=== PATIENT | female | born 1970 | race Caucasian/White ===

== ENCOUNTER 2017-01-04 08:34 | Emergency (ER) | payer BC ==
[~2017-01-04] VITALS: Ht 162.6 cm; Wt 63.5 kg
[2017-01-04 08:35] VITALS: BP_SYST 150
--- NOTE | 2017-01-04 08:35 | NUR ---
Patient to ER bed 08 to gown for evaluation. Side rails up. Report given to NYA Matos.
--- NOTE | 2017-01-04 08:46 | NUR ---
Recieved Pt in bed 8. Pt stated she was cooking corn last night 01/03/2017 and spilled boiling hot water on left lower leg and foot. 2nd degee lombardi noted on left lower leg, 6% lower lombardi noted lower leg. Vesicle and reddness noted. Pt stated she applied bacitracim on wound and wrapped gauzed and kerlix dressing. Addendum: 01/04/17 at 0850 by PARISA Pt c/o 09/18 pain.
--- NOTE | 2017-01-04 09:05 | NUR ---
Dr. Garay at the bedside discussing plan of care. Currently awaiting new orders.
[2017-01-04] MEDS ORDERED: SILVER SULFADIAZINE 1%, 25 GM TOPICAL CREAM (SSD) TP ONE (09:15)
[2017-01-04 09:30] VITALS: BP_SYST 124
--- NOTE | 2017-01-04 09:40 | NUR ---
Patient given written and verbal discharge instructions and verbalizes understanding. ER MD discussed with patient the results and treatment provided. Given copies of tests performed in ER. Patient in stable condition. ID arm band removed. Rx of silvadene given. Patient educated on pain management and to follow up with PMD. Pain Scale 0/10. Opportunity for questions provided and answered.
== END 2017-01-04 09:40 | disposition home or self-care (01) ==
LOC: SED 08:34
DX: T24.202A Burn of second degree of unspecified site of left lower limb, except ankle and foot, initial encounter (principal); T24.232A Burn of second degree of left lower leg, initial encounter; R03.0 Elevated blood-pressure reading, without diagnosis of hypertension; X12.XXXA Contact with other hot fluids, initial encounter; Y93.G3 Activity, cooking and baking; Y99.8 Other external cause status; Y92.89 Other specified places as the place of occurrence of the external cause
CPT/HCPCS: 99283

== ENCOUNTER 2018-06-09 16:31 | Emergency (ER) | payer BC ==
[~2018-06-09] VITALS: Ht 162.6 cm; Wt 61.2 kg
[2018-06-09 16:33] VITALS: BP_SYST 138
[2018-06-09] MEDS ORDERED: KETOROLAC TROMETHAMINE 30 MG VIAL IVP ONE (17:00)
[2018-06-09] MEDS ORDERED: NACL 0.9% 1,000 ML IV ONE (17:00)
[2018-06-09 17:21] LABS: BASOPHILS % (AUTO) 0.3 % (0.0-2.0); EOSINOPHILS # (AUTO) 0.1 K/uL (0.0-0.4); EOSINOPHILS % (AUTO) 0.6 % (0.0-4.0); HEMOGLOBIN 14.1 g/dL (12.0-16.0); LYMPHOCYTES # (AUTO) 1.4 K/uL (1.0-5.5); LYMPHOCYTES % (AUTO) 14.9 % (20.5-51.5); MEAN CORPUSCULAR HEMOGLOBIN 29 pg (27-31); MEAN CORPUSCULAR HGB CONC 32 % (32-36); MEAN CORPUSCULAR VOLUME 91 fL (79.0-98.0); MONOCYTES # (AUTO) 0.7 K/uL (0.0-1.0); MONOCYTES % (AUTO) 6.8 % (1.7-9.3); NEUTROPHILS # (AUTO) 7.4 K/uL (1.8-7.7); NEUTROPHILS % (AUTO) 77.4 % (40.0-70.0); PLATELET COUNT (AUTO) 316 K/uL (130-430); RED BLOOD CELL COUNT(AUTO) 4.82 MIL/uL (4.2-6.2); RED CELL DISTRIBUTION WIDTH 12.6 % (9.0-15.0); WHITE BLOOD COUNT (AUTO) 9.6 K/uL (4.8-10.8)
[2018-06-09 17:22] LABS: CALCIUM 8.7 mg/dL (8.4-11.0); CREATININE 0.61 mg/dL (0.55-1.30); POTASSIUM 4.2 mmol/L (3.5-5.1)
[2018-06-09 17:26] LABS: ALBUMIN 3.4 g/dL (3.4-4.8); C-REACTIVE PROTEIN QUANT 2.6 mg/dL (0-0.5); TOTAL BILIRUBIN 0.5 mg/dL (0.0-1.0)
[2018-06-09] MEDS ORDERED: DIPHENHYDRAMINE INJ 50 MG/ML VIAL IVP ONE (17:30)
[2018-06-09] MEDS ORDERED: cefTRIAXone 1 GM in D5W 50 ML IV ONE (17:30)
[2018-06-09] MEDS ORDERED: cefTRIAXone 1 GM VIAL ONE (18:02)
[2018-06-09 19:15] VITALS: BP_SYST 131
== END 2018-06-09 19:40 | disposition home or self-care (01) ==
LOC: SED 16:31
DX: K04.7 Periapical abscess without sinus (principal); R22.0 Localized swelling, mass and lump, head; R03.0 Elevated blood-pressure reading, without diagnosis of hypertension; F15.10 Other stimulant abuse, uncomplicated
CPT/HCPCS: 36415; 70486; 80053; 81025; 83605; 85025; 86140; 87040; 96365; 96375; 99285; J0696; J1200; J7030; J1885

== ENCOUNTER 2019-09-01 15:57 | Emergency (ER) | payer BC ==
[~2019-09-01] VITALS: Ht 162.6 cm; Wt 61.2 kg
[2019-09-01 16:11] VITALS: BP_SYST 140
--- NOTE | 2019-09-01 16:20 | NUR ---
Patient triaged and placed in waiting room. VSS and patient appears in no acute distress at this time. Accompanied by patient , awaiting available bed, and MD notified of need for MSE.
[2019-09-01 19:00] VITALS: BP_SYST 138
--- NOTE | 2019-09-01 20:26 | NUR ---
Pt on stable condition, resport given to Luis FAY
--- NOTE | 2019-09-01 20:45 | NUR ---
Called pt name in the waiting room,no answer.
--- NOTE | 2019-09-01 20:50 | NUR ---
Called pt name in the waiting room,no answer.
--- NOTE | 2019-09-01 21:00 | NUR ---
Called pt name in the waiting room,no answer.
== END 2019-09-01 21:00 | disposition left against medical advice (07) ==
LOC: SED 15:57
DX: M79.89 Other specified soft tissue disorders (principal); Z53.21 Procedure and treatment not carried out due to patient leaving prior to being seen by health care provider

== ENCOUNTER 2019-09-10 17:57 | Emergency (ER) | payer BC ==
[~2019-09-10] VITALS: Ht 162.6 cm; Wt 63.5 kg
[2019-09-10 18:00] VITALS: BP_SYST 130
--- NOTE | 2019-09-10 18:00 | NUR ---
Patient triaged and placed in waiting room. VSS and patient appears in no acute distress at this time. Accompanied by SELF, awaiting available bed, and MD notified of need for MSE.
--- NOTE | 2019-09-10 19:48 | NUR ---
Patient to ER h1 to gown for evaluation. Side rails up.
--- NOTE | 2019-09-10 19:50 | NUR ---
Patient ambulated to H1 bed c/o left foot swelling. Pt states that she noticed that it was swollen a few days before [place]. Pt denies any trauma, N/V, diarrhea, or fever. Noted erythema and edema to left ankle. No other injuries/complaints per patient or noted.
--- NOTE | 2019-09-10 20:15 | NUR ---
ER Dr. York at bedside examining patient.
--- NOTE | 2019-09-10 21:21 | NUR ---
Xray at bedside. Pt tolerated well.
[2019-09-10] MEDS ORDERED: CEPHALEXIN 500 MG CAPSULE PO ONE (21:30)
[2019-09-10 21:33] VITALS: BP_SYST 125
--- NOTE | 2019-09-10 21:34 | NUR ---
Patient given written and verbal discharge instructions and verbalizes understanding. ER MD discussed with patient the results and treatment provided. Patient in stable condition. ID arm band removed. Rx of Keflex given. Patient educated on pain management and to follow up with PMD. Pain Scale 0. Opportunity for questions provided and answered. Medication side effect fact sheet provided.
== END 2019-09-10 21:34 | disposition home or self-care (01) ==
LOC: SED 17:57
DX: L03.116 Cellulitis of left lower limb (principal)
CPT/HCPCS: 99283; J7030

== ENCOUNTER 2020-08-07 17:36 | Emergency (ER) | payer BC ==
[~2020-08-07] VITALS: Ht 162.6 cm; Wt 65.8 kg
[2020-08-07 17:52] VITALS: BP_SYST 135
--- NOTE | 2020-08-07 17:56 | NUR ---
AMBULATED TO BED 4
--- NOTE | 2020-08-07 18:00 | NUR ---
Pt walked in to ER with c/o left shoulder and forearm pain. Reports falling from a ladder yesterday at her house. Denies any head trauma, arm pain 03/18. V/S stable, pt is afebrile Currently resting in bed, will continue to monitor.
--- NOTE | 2020-08-07 18:15 | NUR ---
ER Dr. Cuevas at bedside examining patient.
--- NOTE | 2020-08-07 18:25 | NUR ---
Radiology at bedside for x-rays
[2020-08-07] MEDS ORDERED: KETOROLAC TROMETHAMINE 60 MG/2 ML VIAL IM ONE ×2 (18:30→18:37)
--- NOTE | 2020-08-07 19:17 | NUR ---
Care of patient endorsed to NYA Hines. Pt currently sitting at bedside, no distress noted.
[2020-08-07 19:32] VITALS: BP_SYST 123
--- NOTE | 2020-08-07 19:32 | NUR ---
Patient given written and verbal discharge instructions and verbalizes understanding. ER MD discussed with patient the results and treatment provided. Patient in stable condition. ID arm band removed. Rx of Motrin given. Patient educated on pain management and to follow up with PMD. Pain Scale 0. Opportunity for questions provided and answered. Medication side effect fact sheet provided.
== END 2020-08-07 19:32 | disposition home or self-care (01) ==
LOC: SED 17:36
DX: S40.012A Contusion of left shoulder, initial encounter (principal); S50.02XA Contusion of left elbow, initial encounter; R03.0 Elevated blood-pressure reading, without diagnosis of hypertension; W11.XXXA Fall on and from ladder, initial encounter; Y93.89 Activity, other specified; Y92.89 Other specified places as the place of occurrence of the external cause; Y99.8 Other external cause status
CPT/HCPCS: 29105; 73020; 73060; 73080; 73090; 81025; 96372; 99284; J1885